=== PATIENT | male | born 1985 | race African-American/Black ===

== ENCOUNTER 2017-09-24 23:42 | Emergency (ER) | payer OTHER ==
[~2017-09-24] VITALS: Ht 170.2 cm; Wt 80.0 kg
[2017-09-24 23:45] VITALS: BP 143/88; PULSE 99; RESP 18; TEMP 98.1; O2SAT 99
[2017-09-25] MEDS ORDERED: IBUPROFEN 800 MG TAB PO ONE
[2017-09-25] MEDS ORDERED: TETANUS/DIPHTHERIA TOXOID ADULT 0.5 ML VIAL IM ONE
[2017-09-25] MEDS ORDERED: SILVER SULFADIAZINE 1% CR 50 GM JAR TOPICAL ONE
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
[2017-09-25] MEDS ORDERED: HYDR-3516 PO (00:05)
[2017-09-25] MEDS ORDERED: SSD1CRE TOPICAL (00:05)
== END 2017-09-25 01:17 | disposition home or self-care (01) ==
LOC: NEPD 23:42
DX: T23.231A Burn of second degree of multiple right fingers (nail), not including thumb, initial encounter (principal); Z23 Encounter for immunization; Z72.0 Tobacco use; X10.2XXA Contact with fats and cooking oils, initial encounter; Y99.0 Civilian activity done for income or pay
CPT/HCPCS: 16000; 90471; 90714